=== PATIENT | female | born 1955 | race African-American/Black ===

== ENCOUNTER 2022-10-11 21:16 | Emergency (ER) | payer MEDICARE ==
[~2022-10-11] VITALS: Ht 157.5 cm; Wt 49.9 kg
[2022-10-11] MEDS ORDERED: HYDROMORPHONE 1 MG/1 ML DISP.SYRIN IV ONE (21:30)
[2022-10-11] MEDS ORDERED: ONDANSETRON 4 MG/2 ML VIAL IV ONE (21:30)
[2022-10-11] MEDS ORDERED: HYDROMORPHONE 1 MG/1 ML DISP.SYRIN ONE (21:57)
[2022-10-11] MEDS ORDERED: ONDANSETRON 4 MG/2 ML VIAL ONE (21:57)
[2022-10-11 22:07] LABS: HEMATOCRIT 34.6 % (31.2-41.9); MEAN CORPUSCULAR VOLUME 91.7 fL (75.5-95.3); PLATELET COUNT (AUTO) 169 K/uL (179-408)
[2022-10-11 22:08] LABS: CREATININE 6.1 mg/dL (0.6-1.3); POTASSIUM 4.1 mmol/L (3.5-5.1)
[2022-10-11 22:14] LABS: BILIRUBIN,TOTAL 0.7 mg/dL (0.2-1.0); MAGNESIUM 3.1 mg/dL (1.8-2.4); PHOSPHOROUS 3.4 mg/dL (2.5-4.9); TOTAL PROTEIN, SERUM 7.3 g/dL (6.4-8.2)
[2022-10-11] MEDS ORDERED: NEOMY/BACITRA/POLYMYXIN B OINT UD PACKET TP ONE (22:15)
[2022-10-11] MEDS ORDERED: IV LACTATED RINGERS SOLUTION 1,000 ML BAG IV ONE (23:15)
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
[2022-10-12] MEDS ORDERED: CLONIDINE HCL 0.1 MG TABLET PO ONE (01:00)
[2022-10-12] MEDS ORDERED: NEOMY/BACITRA/POLYMYXIN B OINT UD PACKET TP ONE (01:06)
[2022-10-12] MEDS ORDERED: CLONIDINE HCL 0.1 MG TABLET ONE (01:06)
[2022-10-12] MEDS ORDERED: TDAP DIPH,PERTUSS,TET VAC/PF 0.5 ML DISP.SYRIN IM ONE ×2 (01:07)
[2022-10-12 01:10] VITALS: BP 170/108
[2022-10-12] MEDS ORDERED: HYDROMORPHONE 1 MG/1 ML DISP.SYRIN IV ONE (01:15)
[2022-10-12] MEDS ORDERED: HYDROMORPHONE 1 MG/1 ML DISP.SYRIN ONE (01:16)
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
--- NOTE | 2022-10-12 01:58 | NUR ---
Gave SBAR to Kristi ORTIZ from [facility]
== END 2022-10-12 02:07 | disposition short-term general hospital (02) ==
LOC: ER 21:16
DX: T20.212A Burn of second degree of left ear [any part, except ear drum], initial encounter (principal); T20.211A Burn of second degree of right ear [any part, except ear drum], initial encounter; T20.25XA Burn of second degree of scalp [any part], initial encounter; T28.411A Burn of right ear drum, initial encounter; T28.412A Burn of left ear drum, initial encounter; T31.0 Burns involving less than 10% of body surface; X00.8XXA Other exposure to uncontrolled fire in building or structure, initial encounter; Y92.099 Unspecified place in other non-institutional residence as the place of occurrence of the external cause; F17.210 Nicotine dependence, cigarettes, uncomplicated; Z20.822 Contact with and (suspected) exposure to COVID-19; Z88.6 Allergy status to analgesic agent; Z88.2 Allergy status to sulfonamides; I51.7 Cardiomegaly; N18.6 End stage renal disease
CPT/HCPCS: 99285; 96374; 71045; 96375; 87426; 99406; 80053; 83735; 84100; 85025; 36415; 16020; 90715; 96376; 90471 ×2; J2405; J1170 ×2; J7120